=== PATIENT | male | born 1990 | race Caucasian/White ===

== ENCOUNTER 2023-12-18 17:19 | Emergency (ER) | payer SELFPAY ==
[2023-12-18 17:24] VITALS: BP 131/88; PULSE 81; RESP 24; TEMP 36.8; O2SAT 99; BMI 27.9
--- NOTE | 2023-12-18 17:32 | ECG_ITS ---
[facility] Test Date: 2023-12-18 Pat Name: PRATEEK GILL Department: Room: - Gender: Male [employer]: : 1990 Requested By: SHAIKH NADEEM Order Number: [id number] Reading MD: KAMARI YOU Measurements Intervals [place] Rate: 79 P: 72 DE: 154 QRS: 83 QRSD: 80 T: 56 QT: 354 QTc: 389 Interpretive Statements 1100 Sinus rhythm 9110 normal ECG Compared to ECG 11/29/2018 05:50:03 No significant changes Electronically Signed On 12-19-2023 6:51:15 EDT by KAMARI YOU
[2023-12-18 17:47] VITALS: PULSE 83
[2023-12-18 17:59] LABS: Basophils Percent Auto 0.3 % (0.2-2.0); Eosinophils Percent Auto 0.4 % (0.9-7.0); Hematocrit 48.5 % (42.0-54.0); Immature Granulocytes Abs Auto 0.04 10^3/uL (0.00-0.03); Immature Granulocytes Pct Auto 0.4 % (0.0-0.5); Lymphocytes Absolute Auto 1.7 10^3/uL (1.2-3.8); Lymphocytes Percent Auto 17.9 % (20.5-60.0); Mean Corpuscular Hemoglobin 29.3 pg (25.9-34.0); Mean Corpuscular Volume 88.7 fL (80.0-94.0); Mean Platelet Volume 10.4 fL (9.5-13.5); Monocytes Absolute Auto 0.5 10^3/uL (0.3-0.8); Monocytes Percent Auto 5.9 % (1.7-12.0); Neutrophils Absolute Auto 6.9 10^3/uL (1.4-6.5); Neutrophils Percent Auto 75.1 % (43.0-75.0); Platelet Count 344 10^3/uL (150-450); Red Blood Count 5.47 10^6/uL (4.70-6.10); Red Cell Distribution Width 12.1 % (11.0-15.0); White Blood Count 9.2 10^3/uL (4.0-11.0)
--- NOTE | 2023-12-18 18:00 | ED.PSYCH1 ---
HPI - Psych General Chief Complaint: Psychiatric Symptoms Stated Complaint: Anxiety/Situational Crisis Time Seen by Provider: 12/18/23 17:20 Source: Reports patient Mode of arrival: walk-in Limitations: Reports no limitations History of Present Illness HPI Narrative: Patient is a 32-year-old male with a history of anxiety who presents to the emergency department for the evaluation of increasing paranoia and difficulty functioning. He states this is at least the third episode of similar symptoms in the last several years. He was diagnosed with anxiety previously, he last received a prescription of Ativan in 2021, he states he has been taking them more frequently now for the last several days. He feels very paranoid about the current state of the world, he is worried about [place] day, he states he is fixated on this. He does not have any specific suicidal or homicidal plan but does state that he sometimes hopes that he will not wake up. He denies any extra drug or alcohol ingestion. No other focal medical complaints. He initially reported nausea but in my time of evaluation he does not feel nauseous and does not feel he needs any medication for this. Related Data Home Medications ?Medication ?Instructions ?Recorded ?Confirmed buspirone 10 mg tablet 10 mg PO BID 12/18/23 12/18/23 lamotrigine 25 mg tablet 25 mg PO Q12H 12/18/23 12/18/23 lorazepam 1 mg tablet (Ativan) 1 mg PO DAILY 12/18/23 12/18/23 Allergies Allergy/AdvReac Type Severity Reaction Status Date / Time Penicillins Allergy Severe Hives Verified 12/18/23 17:31 Review of Systems ROS Constitutional Denies: fever or chills Ears, nose, mouth, and throat Denies: throat pain Cardiovascular Denies: chest pain Respiratory Denies: shortness of breath Gastrointestinal Denies: nausea or vomiting Genitourinary Denies: painful urination Neurological Denies: headache Psychiatric Reports: anxiety, paranoia and difficulty concentrating Exam Narrative Exam Narrative: Gen.: Awake, alert, in no distress Head: Normocephalic, atraumatic ENT: Moist mucous membranes Respiratory: No respiratory distress Extremities: Moves extremities equally, no injuries noted Psych: Calm, cooperative, tearful Neuro: No focal neuro deficit Skin: Warm, dry, intact Constitutional Vital Signs, click to edit/add: Last Vital Signs Temp 98.1 F 12/18/23 18:50 Pulse 90 12/18/23 18:50 Resp 18 12/18/23 18:50 BP 136/88 12/18/23 18:50 Pulse Ox 99 12/18/23 18:50 O2 Del Method Room Air 12/18/23 17:24 Course Vital Signs Vital signs: Vital Signs Temperature 98.2 F 12/18/23 17:24 Pulse Rate 81 12/18/23 17:24 Respiratory Rate 24 12/18/23 17:24 Blood Pressure 131/88 12/18/23 17:24 Pulse Oximetry 99 12/18/23 17:24 Oxygen Delivery Method Room Air 12/18/23 17:24 Temperature 98.1 F 12/18/23 18:50 Pulse Rate 90 12/18/23 18:50 Respiratory Rate 18 12/18/23 18:50 Blood Pressure 136/88 12/18/23 18:50 Pulse Oximetry 99 12/18/23 18:50 Oxygen Delivery Method Room Air 12/18/23 17:24 MDM - Psych MDM Narrative Medical decision making narrative: 2003: Labs, urine and EKG obtained. Patient is negative for COVID. He is calm and cooperative in the ER, expresses desire to discuss voluntary hospitalization with [facility] counseling services. Patient is medically clear for psychiatric evaluation. He was evaluated by mental health counseling services and would like to pursue voluntary admission to psychiatric facility. We are awaiting acceptance from [facility] inpatient psychiatric facility at this time. 2100: Patient accepted by Dr. Rea for voluntary admission to [facility] at this time. Medical Records Attestation: I reviewed the patient's medical records. Lab Data Attestation: I reviewed the patient's lab results. Labs: Lab Results 12/18/23 12/18/23 12/18/23 Range/Units 17:30 17:35 17:42 WBC 9.2 (4.0-11.0) 10^3/uL RBC 5.47 (4.70-6.10) 10^6/uL Hgb 16.0 (14.0-18.0) g/dL Hct 48.5 (42.0-54.0) % MCV 88.7 (80.0-94.0) fL MCH 29.3 (25.9-34.0) pg MCHC 33.0 (29.9-35.2) g/dL RDW 12.1 (11.0-15.0) % Plt Count 344 (150-450) 10^3/uL MPV 10.4 (9.5-13.5) fL Neut % (Auto) 75.1 H (43.0-75.0) % Lymph % (Auto) 17.9 L (20.5-60.0) % [place] % (Auto) 5.9 (1.7-12.0) % Eos % (Auto) 0.4 L (0.9-7.0) % Baso % (Auto) 0.3 (0.2-2.0) % Neut # (Auto) 6.9 H (1.4-6.5) 10^3/uL Lymph # (Auto) 1.7 (1.2-3.8) 10^3/uL [place] # (Auto) 0.5 (0.3-0.8) 10^3/uL Eos # (Auto) 0.0 (0.0-0.7) 10^3/uL Baso # (Auto) 0.0 (0.0-0.1) 10^3/uL Abs Immat Gran (auto) 0.04 H (0.00-0.03) 10^3/uL Imm/Tot Granulo (auto) 0.4 (0.0-0.5) % Sodium 138 (136-145) mmol/L Potassium 3.6 (3.5-5.1) mmol/L Chloride 101 (98-107) mmol/L Carbon Dioxide 26.0 (21.0-32.0) mmol/L Anion Gap 14.6 BUN 13.0 (7.0-18.0) mg/dL Creatinine 1.01 (0.70-1.30) mg/dL Est GFR ( Amer) >60 (>=60) Est GFR (Non-Af Amer) >60 (>=60) BUN/Creatinine Ratio 12.9 Glucose 88 (74-106) mg/dL Calcium 9.4 (8.5-10.1) mg/dL Total Bilirubin 0.7 (0.2-1.0) mg/dL AST 11 L (15-37) U/L ALT 19 (16-63) U/L Alkaline Phosphatase 82 (46-116) U/L Total Protein 8.0 (6.4-8.2) g/dL Albumin 4.8 (3.4-5.0) g/dL Globulin 3.2 g/dL Albumin/Globulin Ratio 1.5 Salicylates <2.8 (<=19.9) mg/dL Urine Opiates Screen Negative (NEGATIVE) Ur Buprenorphine Scrn Negative (NEGATIVE) Ur Oxycodone Screen Negative (NEGATIVE) Urine Methadone Screen Negative (NEGATIVE) Acetaminophen <2.0 L (10.0-30.0) ug/mL Ur Barbiturates Screen Negative (NEGATIVE) U Tricyclic Antidepress Negative (NEGATIVE) Ur Phencyclidine Scrn Negative (NEGATIVE) Ur Amphetamines Screen Negative (NEGATIVE) U Methamphetamines Scrn Negative (NEGATIVE) U Benzodiazepines Scrn Positive A (NEGATIVE) Urine Cocaine Screen Negative (NEGATIVE) U Cannabinoids Screen Negative (NEGATIVE) Ethanol Quant <3 mg/dL SARS-CoV-2 Ag (CV2AG) Negative (NEGATIVE) ECG Data Attestation: I personally reviewed and interpreted this ECG as follows: (Normal sinus rhythm at a rate of 79, no acute ST elevation or ectopy. EKG reviewed by attending physician) Discharge Plan Discharge Chief Complaint: Psychiatric Symptoms Clinical Impression: Acute psychosis Patient Disposition: [facility] Time of Disposition Decision: 21:01 Discharge Location: [facility] Condition: Good Mode of Transportation: Mental Health Car Discharge Date/Time: 12/18/23 21:55
[2023-12-18 18:02] LABS: SARS-CoV-2 Ag NEGATIVE (NEGATIVE)
[2023-12-18 18:06] LABS: Alanine Aminotransferase 19 U/L (16-63); Albumin Globulin Ratio 1.5; Albumin Level 4.8 g/dL (3.4-5.0); Alkaline Phosphatase 82 U/L (46-116); Anion Gap 14.6; Aspartate Amino Transferase 11 U/L (15-37); BUN Creatinine Ratio 12.9; Bilirubin Total 0.7 mg/dL (0.2-1.0); Calcium 9.4 mg/dL (8.5-10.1); Chloride 101 mmol/L (98-107); Estimated GFR (African America >60 (>=60); Estimated GFR (Non-African Ame >60 (>=60); Ethanol <3 mg/dL; Globulin 3.2 g/dL; Glucose 88 mg/dL (74-106); Potassium 3.6 mmol/L (3.5-5.1); Salicylate <2.8 mg/dL (<=19.9); Sodium 138 mmol/L (136-145)
[2023-12-18 18:08] LABS: Acetaminophen <2.0 ug/mL (10.0-30.0)
[2023-12-18 18:38] LABS: Amphetamine Screen Urine NEGATIVE (NEGATIVE); Barbiturates Screen Urine NEGATIVE (NEGATIVE); Benzodiazepines Screen Urine POSITIVE (NEGATIVE); Buprenorphine Screen Urine NEGATIVE (NEGATIVE); Cannabinoid Screen Urine NEGATIVE (NEGATIVE); Cocaine Screen Urine NEGATIVE (NEGATIVE); Methadone Screen Urine NEGATIVE (NEGATIVE); Methamphetamines Screen Urine NEGATIVE (NEGATIVE); Opiate Screen Urine NEGATIVE (NEGATIVE); Oxycodone Screen Urine NEGATIVE (NEGATIVE); Phencyclidine Screen Urine NEGATIVE (NEGATIVE); Tricyclic Antidepressant Urine NEGATIVE (NEGATIVE)
[2023-12-18 18:50] VITALS: BP 136/88; PULSE 90; RESP 18; TEMP 36.7; O2SAT 99
[2023-12-18] MEDS: CALCIUM CARBONATE 500 MG (200MG ELEMENTAL) TAB CHEW PO (20:33)
== END 2023-12-18 21:55 ==
PROVIDERS: Physician Assistant; Emergency Provider Emergency Medicine; PCP Internal Medicine
DX: F23 Brief psychotic disorder (principal); F41.9 Anxiety disorder, unspecified
CPT/HCPCS: 36415; 80053; 80179; 80307; 80320; 80329; 85025; 87811; 93005; 99285